=== PATIENT | female | born 1985 | race Caucasian/White ===

== ENCOUNTER 2017-05-10 07:15 | Outpatient (CLI) | payer OTHER ==
[2017-05-10 08:31] LABS: eGFR (African) > 60; eGFR (Non-African) > 60
== END 2017-05-10 07:16 ==
LOC: LAB 07:15
PROVIDERS: ATTEND Family Medicine
DX: Z00.00 Encounter for general adult medical examination without abnormal findings (principal); Z13.29 Encounter for screening for other suspected endocrine disorder
CPT/HCPCS: 36415; 80053; 80061; 84443

== ENCOUNTER 2017-05-15 08:06 | Outpatient (CLI) | payer OTHER ==
--- NOTE | 2017-05-15 08:59 | Diagnostic Imaging Report ---
CONNOR DANIELLE [facility] [id number] [facility] [address] [place] [address]. [id number] Report Submission Date: May 15, 2017 8:49:36 AM QUARTER INSPECTOR Patient Study Name: GIANCARLO SAMUEL Date: May 15, 2017 8:18:30 AM QUARTER INSPECTOR Modality Type: US Gender: F Description: US ABD LIMITED : 85 Institution: [facility] Physician: CONNOR DANIELLE Examination: Ultrasound gallbladder History: Epigastric discomfort Findings: Sonographic evaluation of the right upper quadrant demonstrates the gallbladder without stones or sludge. Gallbladder wall measures 2.3 mm. Common bile duct measures 3.0 mm. No intrahepatic biliary dilation. Liver demonstrates increased echogenicity. Linear area of increased echogenicity within the left hepatic lobe. No cyst. Normal flow on color analysis. Normal Doppler portal venous waveforms. Right kidney measures 10.1 cm in length. No cortical mass or cyst. No hydronephrosis. Pancreatic region without gross irregularity. Impression: No gallstone or obstruction. Fatty liver. Left hepatic lobe echogenic linear band - uncertain etiology. Consider dedicated hepatic imaging to further evaluate. Electronically signed on May 15, 2017 8:49:36 AM QUARTER INSPECTOR by: Christian ENRIQUEZ
== END 2017-05-15 08:07 ==
LOC: RAD 08:06
PROVIDERS: ATTEND Family Medicine
DX: R79.89 Other specified abnormal findings of blood chemistry (principal)
CPT/HCPCS: 76705

== ENCOUNTER 2017-06-26 12:32 | Outpatient (CLI) | payer OTHER ==
[2017-06-26 22:20] LABS: DIRECT BILIRUBIN <0.2 mg/dL (<0.4)
== END 2017-06-26 12:33 ==
LOC: LAB 12:32
PROVIDERS: ATTEND Internal Medicine Gastroenterology
DX: K76.0 Fatty (change of) liver, not elsewhere classified (principal)
CPT/HCPCS: 36415; 80076; 86706